=== PATIENT | male | born 1960 | race Caucasian/White ===

== ENCOUNTER 2022-01-05 12:13 | Emergency (ER) | payer SELFPAY ==
[2022-01-05 13:09] LABS: CARBON DIOXIDE,CO2 25.3 mmol/L (21.0-32.0); POTASSIUM,K 3.7 mmol/L (3.5-5.1)
[2022-01-05] MEDS ORDERED: Iopamidol 755 MG/ML 500 ML Multipack Bottle IVPUSH STA ×2 (14:06→18:13)
== END 2022-01-05 15:25 | disposition home or self-care (01) ==
LOC: MW.ED 12:13
DX: U07.1 COVID-19 (principal); R55 Syncope and collapse; E11.9 Type 2 diabetes mellitus without complications; I10 Essential (primary) hypertension; E66.9 Obesity, unspecified; Z68.34 Body mass index [BMI] 34.0-34.9, adult
CPT/HCPCS: 36415; 71045; 71275; 80053; 81001; 82009; 82803; 82947; 83605; 84443; 84484; 85025; 85610; 87635; 93005; 99284; Q9967; 93010; U0002